=== PATIENT | male | born 1980 | race Caucasian/White ===

== ENCOUNTER → 2021-09-17 10:38 | Outpatient (CLI) | payer OTHER, SELFPAY ==
[2021-09-18 03:58] LABS: SARS-CoV-2 RNA PCR Positive
== END ==
PROVIDERS: PCP Family Medicine; Visit Provider Physician Assistant Medical
DX: U07.1 COVID-19 (principal)
CPT/HCPCS: C9803; U0003; U0005

== ENCOUNTER 2023-03-12 13:39 | Outpatient (CLI) | payer OTHER, SELFPAY ==
--- NOTE | ~2023-03-12 | MR_ITS ---
MRI of the right shoulder Technique: Axial proton-density fat-sat images, coronal proton density fat-sat and T2 fat-sat images, and sagittal T1-weighted and T2 fat-sat images were acquired. Clinical History: Pain Findings: There is no significant degenerative change at the AC joint. Coracoclavicular, coracoacromi al, and coracohumeral ligaments are intact. Supraspinatus and infraspinatus tendons are intact, without partial or full-thickness tear. Subscapul renetta tendon is intact with mild tendinosis. Tendon of the long head of the biceps is intact. No labral tear identified. Inferior glenohumeral ligament is intact. No degenerative change or effusion of the glenohumeral join t. There is probable enthesopathic change at the rotator cuff insertion. No fluid distention of the s ubacromial/subdeltoid bursa. No muscle atrophy or edema. Impression: Mild subscapularis tendinosis. No other significant findings. Reviewed, dictated and finalized at [facility]. Impression: Mild subscapularis tendinosis. No other significant findings.
== END 2023-03-12 13:40 | disposition home or self-care (01) ==
PROVIDERS: PCP Family Medicine; Visit Provider Physician Assistant
DX: M25.511 Pain in right shoulder (principal)
CPT/HCPCS: 73221